=== PATIENT | female | born 1995 | race Caucasian/White ===

== ENCOUNTER 2016-06-05 22:49 | Emergency (ER) | payer OTHER ==
[~2016-06-05] VITALS: Ht 177.8 cm; Wt 104.9 kg
[2016-06-06] MEDS ORDERED: NAPROSYN500 MG PO (00:06)
[2016-06-06] MEDS ORDERED: LIDODERM 5% P1 PATCH TD (00:06)
[2016-06-06 00:43] VITALS: BP 127/86
== END 2016-06-06 00:45 | disposition home or self-care (01) ==
LOC: EME 22:49
DX: S16.1XXA Strain of muscle, fascia and tendon at neck level, initial encounter (principal); S39.012A Strain of muscle, fascia and tendon of lower back, initial encounter; V49.00XA Driver injured in collision with unspecified motor vehicles in nontraffic accident, initial encounter; Y92.481 Parking lot as the place of occurrence of the external cause
CPT/HCPCS: 72050; 72100; 99281; 99284